=== PATIENT | female | born 1995 | race Caucasian/White ===

== ENCOUNTER → 2020-08-20 16:00 | Outpatient (CLI) | payer OTHER, SELFPAY ==
--- NOTE | ~2020-08-20 | XR_ITS ---
XR abdomen/kub 1V 08/20/2020 16:13 INDICATION: Hematuria TECHNIQUE: KUB COMPARISON: None FINDINGS: Bowel gas pattern is normal. Moderate colonic fecal loading. There is no evidence of free a ir, mass, organomegaly, ascites or obstruction. No abnormal calculi are seen. The bones appear inta ct. IMPRESSION: 1: No acute abdominal abnormality identified. Reviewed, dictated and finalized at location A. 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
== END ==
PROVIDERS: PCP Family Medicine; Visit Provider Family Medicine
DX: R31.9 Hematuria, unspecified (principal)
CPT/HCPCS: 74018

== ENCOUNTER → 2021-12-29 09:08 | Outpatient (CLI) | payer OTHER, SELFPAY ==
--- NOTE | ~2021-12-29 | XR_ITS ---
EXAMINATION: XR knee RT min 4V DATE: 12/29/2021 09:41 INDICATION: Unspecified injury of unspecified lower leg. TECHNIQUE: 4 views of right knee including standing views were obtained. COMPARISON: None. FINDINGS: Bone alignment is normal. No fracture. Joint spaces are normal. No knee joint effusion. IMPRESSION: 1. Normal right knee. Reviewed, dictated and finalized at location B. IMPRESSION: 1. Normal right knee.
== END ==
PROVIDERS: PCP Family Medicine; Visit Provider Physician Assistant
DX: S89.91XA Unspecified injury of right lower leg, initial encounter (principal)
CPT/HCPCS: 73564

== ENCOUNTER 2025-03-12 16:27 | Outpatient (RCR) | payer BC, SELFPAY ==
[2025-02-20 17:50] VITALS: BP 122/71; PULSE 102
--- NOTE | 2025-02-26 16:55 | PC.NURSE ---
Called Dr. Degroot with pt BPs. Orders received for labs. Call with results.
[2025-02-26 17:31] LABS: Add Urine Microscopic? NO; Appearance Urine Clear (Clear); Glucose Urine UA Negative (Negative); Leukocyte Esterase Ur Negative LEU/UL (Negative); Nitrate Urine Negative (Negative); Specific Grav Ur 1.020 (1.001-1.035)
[2025-02-26 17:45] VITALS: BP 144/83; PULSE 105
[2025-02-26 17:54] LABS: Hematocrit 36.3 % (37.0-47.0); Hemoglobin 11.3 g/dL (12.0-15.0); Immature Granulocyte Percent A 1.4 % (0-0.5); Lymphocytes Absolute Auto 2.49 K/mm3 (0.9-3.2); Mean Corpuscular HGB Conc 31.1 g/dl (32-36); Mean Corpuscular Hemoglobin 30.4 pg (26-34); Mean Corpuscular Volume 97.6 fl (80-100); Nucleated Red Blood Cells Absolute Auto 0.000 K/mm3 (0.0-0.012); Nucleated Red Blood Cells Perc 0.0 % (0.0-0.2); Platelet Count Result 251 k/mm3 (150-375); Red Blood Count 3.72 M/mm3 (4.2-5.4); White Blood Count 12.4 K/mm3 (4.5-10.0)
[2025-02-26 18:04] LABS: Alanine Aminotransferase 23 U/L (6-35); Albumin Level 3.4 g/dL (3.5-5.1); Alkaline Phosphatase 163 U/L (38-126); Anion Gap 9 mmol/L (4-12); Aspartate Amino Transferase 30 U/L (14-36); Bilirubin,Total 0.3 mg/dL (0.2-1.3); Blood Urea Nitrogen 11 mg/dL (7-17); Calcium 9.0 mg/dL (8.4-10.2); Carbon Dioxide 17 mmol/L (22-30); Chloride 107 mmol/L (98-107); Estimated Glomerular Filt Rate > 60; Glucose 80 mg/dL (65-110); Potassium 4.0 mmol/L (3.4-5.0); Sodium 133 mmol/L (137-145); Total Protein 7.0 g/dL (6.3-8.2); Uric Acid 4.1 mg/dL (2.5-7.5)
[2025-02-26 18:34] LABS: Total Protein Urine Random 9 mg/dL; Ur Ttl Prot Creatinine Ratio 0.11 mg/mg (0-0.20)
--- NOTE | 2025-02-26 18:46 | PC.NURSE ---
Called Dr. Degroot, update on labs and blood pressure. Orders received to discharge pt with instructions to keep next scheduled appointment and when to return to the unit.
--- NOTE | 2025-02-26 18:54 | PC.NURSE ---
Pt discharged with instructions to keep next scheduled appointment and when to return to the unit, pt verbalizes understanding.
[2025-03-04 18:16] VITALS: BP 121/70; PULSE 96
[2025-03-11 17:49] VITALS: BP 120/73; PULSE 98
--- NOTE | ~2025-03-12 | US_ITS ---
LIMITED OBSTETRIC ULTRASOUND/BIOPHYSICAL PROFILE Ordering provider: Angeles Degroot MD History: . Elevated BMI . Comparison: None. FINDINGS: MATERNAL CERVIX: Not visualized. PRESENTATION: Vertex Longitudinal lie. PLACENTAL LOCATION: Posterior. No previa. HEART RATE: 152 bpm (normal is between 110 to 160 bpm). AMNIOTIC FLUID INDEX: Largest vertical pocket is 2.58 cm. OTHER: Maternal ovaries not visualized. SCORE: breathing movements: 2 movements: 2 tone: 2 Amniotic fluid volume: 2 Total: 8 IMPRESSION: Normal biophysical profile. Single live fetus of Vertex presentation. Reviewed, dictated and finalized at location A.
--- NOTE | ~2025-03-12 | US_ITS ---
EXAMINATION: US OB BPP wo non-stress DATE: 03/04/2025 18:37 CDT INDICATION: Elevated BMI TECHNIQUE: Real-time transabdominal obstetric ultrasound. FINDINGS: 2 para 1 There is a single intrauterine gestation in vertex presentation. The placenta is posterior without placenta previa. cardiac activity and movement is noted with a heart rate of 146 beats per minute. The deepest vertical pocket measures 3.4 cm. Biophysical profile: breathin of 2 movement: 2 of 2 tone: 2 of 2 Amniotic fluid pocket: 2 of 2 Total score: 8 of 8 IMPRESSION: 1. Single intrauterine gestation in vertex presentation. 2: Total biophysical profile score of 8 out of 8. Reviewed, dictated and finalized at location A.
--- NOTE | ~2025-03-12 | US_ITS ---
LIMITED OBSTETRIC ULTRASOUND/BIOPHYSICAL PROFILE Ordering provider: Angeles Degroot MD History: . Elevated BMI and oligo . Comparison: None. FINDINGS: MATERNAL CERVIX: Not visualized. PRESENTATION: Vertex. Longitudinal lie. PLACENTAL LOCATION: Posterior. No previa. HEART RATE: 145 bpm (normal is between 110 to 160 bpm). AMNIOTIC FLUID INDEX: 7.3 cm. 5th percentile is 7.7 cm. 95th percentile is 24.9 cm. Largest vertical pocket is 2.2 cm. normal (RAKESH between 5-25 cm in from 20-35 weeks gestation is considered normal). OTHER: Maternal ovaries not visualized. SCORE: breathing movements: 2 movements: 2 tone: 2 Amniotic fluid volume: 2 Total: 8 IMPRESSION: Normal biophysical profile. Single live fetus of Vertex presentation. Placenta is posterior. RAKESH is 7.3 cm. Reviewed, dictated and finalized at location A.
--- NOTE | ~2025-03-12 | US_ITS ---
EXAMINATION: US OB BPP wo non-stress DATE: 03/11/2025 18:22 INDICATION: BPP for BMI . TECHNIQUE: Real-time ultrasound of the pelvis was performed. COMPARISON: 03/04/2025 FINDINGS: There is a single living fetus in vertex presentation, longitudinal lie. The placenta is posterior, well distant from the cervix. heart rate is 150 bpm. Deepest vertical pocket measures 4.0 cm, w hich is normal. Biophysical profile performed by the technologist: breathing (30 sec sustained breathing in 30 minutes): 2 out of 2. movement (3 gross body movements in 30 minutes: 2 out of 2. tone (one episode of huxoerg-udttomlee-bqojpun limb movement): 2 out of 2. Amniotic fluid pocket (2 cm): 2 out of 2. Total score: 8 out of 8. IMPRESSION: Single living fetus in vertex presentation. Biophysical profile 8 out of 8. Reviewed, dictated and finalized at location K.
== END 2025-03-28 09:53 | disposition other institution (70) ==
LOC: ANHOBOP 16:27
PROVIDERS: PCP Family Medicine; Visit Provider Obstetrics & Gynecology
DX: O13.9 Gestational [pregnancy-induced] hypertension without significant proteinuria, unspecified trimester (principal)
CPT/HCPCS: 36415; 59025; 76819; 80053; 81003; 82570; 84156; 84550; 85025

== ENCOUNTER 2025-03-13 05:43 | Inpatient (IN) | payer BC, SELFPAY ==
[2025-03-13] VITALS (88 sets, daily range): BP systolic 89–141; BP diastolic 27–96; PULSE 70–120; RESP 16–18; TEMP 36.6–37; O2SAT 96–100; BMI 48.8
--- NOTE | 2025-03-13 05:43 | LDADM ---
This patient, Oanh Palomo, was admitted to Labor/Delivery/Recovery 107 on 03/13/25 at 05:43. Plans for labor, pain management and were discussed with patient. Patient/family oriented to hospital policies and general routines including ID bracelet, bed and alarms, visiting hours, pain management, procedures, bathroom and other care routines, personal items, smoking policy, room service/diet and guest tray routines, security routines, and visiting hours. Patient/Family are encouraged to report perceived risks to care and to ask questions if they do not understand what they are told or what they should do. See OBIX for further documentation.
--- OUTSIDE RECORDS SUMMARY | 2025-03-13 05:48 | XMS_ITS | Clinical Summary ---
Author Organization [facility] Address [facility] [place] [address] Care Team Providers Care Corporate Tutor Name Role Phone Yissel Stapleton Primary Care Provider [phone] Allergies No known active allergies Medications dicyclomine 10 MG capsule Take 1 capsule (10 mg total) by mouth 4 (four) times daily as needed. 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 Pulse 95 09/11/2020 2:26 PM ORNAMENTAL BRONZE WORKER Temperature 36.6 C (97.9 F) 09/11/2020 2:26 PM ORNAMENTAL BRONZE WORKER Respiratory Rate 20 09/11/2020 2:26 PM ORNAMENTAL BRONZE WORKER Oxygen Saturation 98% 09/11/2020 2:26 PM ORNAMENTAL BRONZE WORKER Inhaled Oxygen Concentration - - Weight 81.6 kg (180 lb) 09/11/2020 2:26 PM ORNAMENTAL BRONZE WORKER Height 160 cm (5' 3) 09/11/2020 2:26 PM ORNAMENTAL BRONZE WORKER Body Mass Index 31.89 09/11/2020 2:26 PM ORNAMENTAL BRONZE WORKER Plan of Treatment Health Maintenance Due Date Last Done Comments Cervical Cancer Screening Pa p Smear (Age 30 to 64) Every 3 Years 1993 Annual Physical 1996 Hepatitis C 2011 DTaP, Tdap and Td Vaccines ( 1 - Tdap) 2012 Hepatitis B Vaccines (1 of 3 - 19+ 3-dose series) 2012 Cervical Cancer Screening Jordy underwood with HPV Testing (Age 30 to 64) Every 5 Years 2023 Cervical Cancer Screening with HPV 2023 COVID-19 Vaccine (1 - 2023-2 5 season) 2024 HPV Vaccines Aged Out No longer eligi ble based on patient's age to complete this topic Meningococcal B Vaccine Aged Out No l onger eligible based on patient's age to complete this topic Meningococcal Vaccine Aged Out No urmila yessica eligible based on patient's age to complete this topic Pneumococcal Vaccine: Pediat rics (0 to 5 Years) and At-Risk Patients (6 to 49 Years) Aged Out No longer eligible b ased on patient's age to complete this topic RSV Immunizations Under 20 Months Aged Out No longer eligible based on patient's age to complete this topic Insurance AET[employer] Care Teams Corporate Tutor Relationship Specialty Start Date End Date Yissel Stapleton PA [address] [place] [address] PCP - General 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
[2025-03-13 06:25] LABS: Hematocrit 35.0 % (37.0-47.0); Hemoglobin 11.5 g/dL (12.0-15.0); Immature Granulocyte Percent A 0.5 % (0-0.5); Lymphocytes Absolute Auto 2.06 K/mm3 (0.9-3.2); Mean Corpuscular HGB Conc 32.9 g/dl (32-36); Mean Corpuscular Hemoglobin 30.8 pg (26-34); Mean Corpuscular Volume 93.8 fl (80-100); Nucleated Red Blood Cells Absolute Auto 0.000 K/mm3 (0.0-0.012); Nucleated Red Blood Cells Perc 0.0 % (0.0-0.2); Platelet Count Result 239 k/mm3 (150-375); Red Blood Count 3.73 M/mm3 (4.2-5.4); White Blood Count 10.0 K/mm3 (4.5-10.0)
[2025-03-13] MEDS: LACTATED RINGERS 1,000 ML 125 ML IV CONT ×2 (06:51→10:40)
[2025-03-13] MEDS: OXYTOCIN 30 UNITS/NS 500 ML 30 UNITS/500 ML BAG IV CONT (06:52)
--- NOTE | 2025-03-13 07:10 | PM.IMHP ---
H&P: HPI History of Present Illness Date/Time: 03/13/25 07:10 Chief Complaint: induction Narrative: Oanh is a 29yo @ 39.0wks who presents for elective IOL. She reports good movement. She has irregular contractions. NO VB or LOF. Her is complicated by: - obesity- MFM for scans, low dose ASA - Anxiety- no meds - h/o self-harm - Elevated BP, moderate range 02/26/25 Review of Systems Constitutional: Constitutional: Denies chills, Denies fever(s) and Denies headache(s) Eyes: Eyes: Denies change in vision ENT: Denies headache(s) Cardiovascular: Cardiovascular: Denies chest pain and Denies dyspnea Respiratory: Respiratory: Denies dyspnea Genitourinary: Genitourinary: Denies abnormal vaginal bleeding and Denies vaginal discharge Neurologic: Denies headache(s) Psychiatric: Psychiatric: Denies anxiety and Denies depression PMFSH Past Medical History Medical History Suppression of menses Irritable bowel syndrome Anxiety Self-harm Depression Deliberate self-cutting Suicidal ideation Anxiety Depression Family History Family History Father Hypertension Heart disease Mother Depression Heart disease Anxiety associated with depression Social History Social History Smoking packs per day: 0.5 Smoking cigarettes per day: 10.0 Years smoked: 8 Smoking pack-years: 4.00 Smoking status: Former smoker Tobacco type: e-cigarettes/vaping Additional smoking assessment comments: currently vapes/ no cigarettes Alcohol intake: former Alcohol use details: seldom; socially Substance use: never Substance use type: does not use Do You Feel Safe in your Home?: Yes Lack of Transportation: No Lack of Food: Never True Current Housing: I Have Housing Concerned About Future Housing: No Difficulty Paying Gas/Electric Bills: No Difficulty Paying for Meds: No Currently Unemployed: No Education: Bachelor's Degree Difficulty w/ Childcare or Family Care: No Living arrangements: with family Occupation/Education: occupation Gender identity (if verbalized by the patient): Female Spiritual care concerns: No Agree to blood products: No Meds Home Medications and Allergies Home Medications ?Medication ?Instructions ?Recorded ?Confirmed ?Type docosahexaenoic acid 200 mg 200 mg PO DAILY 10/31/24 03/13/25 History capsule ( DHA) aspirin 81 mg chewable tablet 81 mg PO DAILY 11/21/24 03/13/25 History doxylamine succinate 25 mg tablet 25 mg PO QHS PRN sleep 11/21/24 03/13/25 History (Unisom (doxylamine)) esomeprazole magnesium 20 mg 20 mg PO DAILY 11/21/24 03/13/25 History capsule,delayed release pyridoxine (vitamin B6) 10 mg 10 mg PO DAILY 11/21/24 03/13/25 History tablet docusate sodium 100 mg capsule 100 mg PO DAILY 12/19/24 03/13/25 History (Colace) magnesium 200 mg tablet 200 mg PO DAILY 12/19/24 03/13/25 History ferrous sulfate 325 mg (65 mg 325 mg PO DAILY 01/09/25 03/13/25 History iron) tablet (Feosol) Allergies Allergy/AdvReac Type Severity Reaction Status Date / Time Penicillins Allergy Severe anaphl Verified 03/12/25 17:21 Vital Signs Vital Signs - 24 hr 03/13/25 06:39 03/13/25 06:39 03/13/25 06:54 Temperature 97.9 F 97.9 F Pulse Rate 106 H Blood Pressure 125/85 03/13/25 07:01 Temperature Pulse Rate 98 Blood Pressure 119/75 Exam Const: General: cooperative, comfortable, no acute distress and obese Nutritional Appearance: obese Orientation/consciousness: patient oriented x3 Resp: Effort & Inspection: normal respiratory effort Cardio: Rate: regular rate GI: GI Palp: No abdominal tenderness : Other: FHT's: 140's/ mod shonna/ + accels/ no decels - cat 1 TOCO: ctxs q2-4min Cervix: 4/80/-2 Membranes: AROM, clear 0730 Presentation: cephalic Skin: General skin exam: normal color Neuro: General: patient oriented x3 Extrem: General: normal to inspection Psych: Appearance: grossly normal Affect: normal affect Attitude: cooperative H&P: Results Labs Labs: Short CBC 03/13/25 Range/Units 06:07 WBC 10.0 (4.5-10.0) K/mm3 Hgb 11.5 L (12.0-15.0) g/dL Hct 35.0 L (37.0-47.0) % Plt Count 239 (150-375) k/mm3 Assessment and Plan Assessment and plan (1) Encounter for elective induction of labor: Code(s): Z34.90 - Encounter for supervision of normal , unspecified, unspecified trimester Status: Acute Plan - Admitted for induction of labor; risks and benefits discussed; cervix favorable - AROM, clear @ 0730 - Low dose pitocin per protocol - Continuous monitoring - GBS neg - Anesthesia consult PRN pain
[2025-03-13 07:15] LABS: Syphilis IgG/IgM Antibody Non-Reactive (Nonreactive)
--- NOTE | 2025-03-13 11:46 | P.PNAN_ITS ---
Anes - Eval Pre Procedure Procedure: labor pain management Date/Time: 03/13/25 11:46 Surgeon: Tyrone Degroot Preop Diagnosis: pain during labor Pre Op Diagnosis: IOL Patient Data Age: 29 Gender: F Height: 1.6 m Weight: 125 kg Last Vital Signs Temp 97.8 F 03/13/25 10:17 Pulse 80 03/13/25 11:31 BP 109/74 03/13/25 11:31 Pulse Ox 100 03/13/25 11:43 Allergies Allergy/AdvReac Type Severity Reaction Status Date / Time Penicillins Allergy Severe anaphl Verified 03/12/25 17:21 Home Medications ?Medication ?Instructions ?Recorded ?Confirmed ?Type docosahexaenoic acid 200 mg 200 mg PO DAILY 10/31/24 03/13/25 History capsule ( DHA) aspirin 81 mg chewable tablet 81 mg PO DAILY 11/21/24 03/13/25 History doxylamine succinate 25 mg tablet 25 mg PO QHS PRN sleep 11/21/24 03/13/25 History (Unisom (doxylamine)) esomeprazole magnesium 20 mg 20 mg PO DAILY 11/21/24 03/13/25 History capsule,delayed release pyridoxine (vitamin B6) 10 mg 10 mg PO DAILY 11/21/24 03/13/25 History tablet docusate sodium 100 mg capsule 100 mg PO DAILY 12/19/24 03/13/25 History (Colace) magnesium 200 mg tablet 200 mg PO DAILY 12/19/24 03/13/25 History ferrous sulfate 325 mg (65 mg 325 mg PO DAILY 01/09/25 03/13/25 History iron) tablet (Feosol) Laboratory Tests 03/13/25 06:07 WBC 10.0 K/mm3 (4.5-10.0) RBC 3.73 L M/mm3 (4.2-5.4) Hgb 11.5 L g/dL (12.0-15.0) Hct 35.0 L % (37.0-47.0) MCV 93.8 fl (80-100) MCH 30.8 pg (26-34) MCHC 32.9 g/dl (32-36) RDW 15.3 H % (11.5-14.5) Plt Count 239 k/mm3 (150-375) MPV 10.2 fl (7.4-10.4) Immature Gran % (Auto) 0.5 % (0-0.5) Neut % (Auto) 71.0 % (45.5-73.1) Lymph % (Auto) 20.5 % (18.3-44.2) [place] % (Auto) 6.3 % (2.6-8.5) Eos % (Auto) 1.3 % (0-4.4) Baso % (Auto) 0.4 % (0.2-1.2) Lymph # (Auto) 2.06 K/mm3 (0.9-3.2) [place] # (Auto) 0.6 K/mm3 (0.1-0.6) Eos # (Auto) 0.1 K/mm3 (0-0.3) Baso # (Auto) 0.0 K/mm3 (0.0-0.1) Abs Immat Gran (auto) 0.05 H K/mm3 (0.00-0.031) Absolute Neuts (auto) 7.1 H K/mm3 (1.3-6.7) Absolute Nucleated RBC 0.000 K/mm3 (0.0-0.012) Nucleated RBC % 0.0 % (0.0-0.2) Syphilis IgG/IgM Ab Non-reactive (Nonreactive) Blood Type A Positive Antibody Screen Negative Patient hx anesthesia problems: none Family hx anesthesia problems: none Results Review: All pre-operative results and documents have been reviewed as part of the pre- operative evaluation. [facility] Past Medical History Medical History Suppression of menses Irritable bowel syndrome Anxiety Self-harm Depression Deliberate self-cutting Suicidal ideation Anxiety Depression Family History Family History Father Hypertension Heart disease Mother Depression Heart disease Anxiety associated with depression Social History Social History Smoking packs per day: 0.5 Smoking cigarettes per day: 10.0 Years smoked: 8 Smoking pack-years: 4.00 Smoking status: Former smoker Tobacco type: e-cigarettes/vaping Additional smoking assessment comments: currently vapes/ no cigarettes Alcohol intake: former Alcohol use details: seldom; socially Substance use: never Substance use type: does not use Do You Feel Safe in your Home?: Yes Lack of Transportation: No Lack of Food: Never True Current Housing: I Have Housing Concerned About Future Housing: No Difficulty Paying Gas/Electric Bills: No Difficulty Paying for Meds: No Currently Unemployed: No Education: Bachelor's Degree Difficulty w/ Childcare or Family Care: No Living arrangements: with family Occupation/Education: occupation Gender identity (if verbalized by the patient): Female Spiritual care concerns: No Agree to blood products: No Exam Day of Procedure 03/13/25 11:46
--- NOTE | 2025-03-13 12:56 | P.PCNOB_ITS ---
OB - Vaginal Delivery Note Procedure Delivery date: 03/13/25 Induction method: Per Pitocin Protocol Delivery augmentation: Rupture of Membranes Delivery monitor: External FHT and External Uterine Route of delivery: Episiotomy description: None Laceration Description: None Specimen: No Quantitative Blood Loss (ml): 150 Anesthesia type: Epidural Disposition: Floor Complications: No immediate complications [place] Baby Date of : 03/13/25 Time of : 12:43 Gestational Age by Date: 39 gender: Female presentation: vertex position: Right Occiput Anterior Placenta delivery description: Expressed Cord Vessel Description: 3 Vessels and Delayed Cord Clamping score one minute: 9 score five minutes: 9 Narrative: Oanh rapidly progressed to complete dilation with strong desire to push. She pushed for approximately 10 minutes with good maternal effort and delivered the head over intact perineum. No nuchal cord was palpated. She easily delivered the 's shoulders and body without complication. The was immediately placed skin to skin and had spontaneous cry. Delayed cord clamping was performed. The umbilical cord was then doubly clamped and was cut by dad. A segment of cord was collected for cord gases. The remaining cord blood was collected for typing. With Pitocin running and gentle downward traction on the cord, the placenta delivered without complications. Bimanual massage was performed and good uterine tone with minimal bleeding was noted. She was examined and no lacerations were identified. Her uterus remained firm with minimal bleeding. Sponge, lap, instrument, and needle counts were correct at the end of the procedure. Mom and baby were left bonding in the birthing suite in stable condition.
[2025-03-13] MEDS: OXYTOCIN 30 UNITS/NS 500 ML 30 UNITS/500 ML BAG 125 UNITS IV CONT (13:07)
--- NOTE | 2025-03-13 15:14 | OBPPTRN ---
Patient transferred to post room #290 via wheelchair. Support person present. Oriented to unit, room, information board, rooming in, admission packet and security measures. Patient verbalizes understanding.
[2025-03-13] MEDS: DOCUSATE SODIUM 100 MG CAPSULE PO (19:18)
[2025-03-13] MEDS: IBUPROFEN 600 MG TABLET PO (19:18)
[2025-03-14 04:17] LABS: Hematocrit 32.5 % (37.0-47.0); Hemoglobin 10.4 g/dL (12.0-15.0); Mean Corpuscular HGB Conc 32.0 g/dl (32-36); Mean Corpuscular Hemoglobin 31.0 pg (26-34); Mean Corpuscular Volume 96.7 fl (80-100); Platelet Count Result 221 k/mm3 (150-375); Red Blood Count 3.36 M/mm3 (4.2-5.4); White Blood Count 9.9 K/mm3 (4.5-10.0)
--- NOTE | 2025-03-14 07:14 | P.PNOB_ITS ---
OB - PN: Subj Subjective Date/time seen: 03/14/25 07:14 Narrative: PPD#1 Mayda reports doing well today. 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 Her pain is controlled. She is tolerating regular diet, voiding, passing gas, and ambulating without issues. She is breast feeding. OB - PN: Obj Data Labs 03/14/25 03:11 Labs: Laboratory Results - last 24 hr 03/13/25 03/14/25 06:07 03:11 WBC 9.9 RBC 3.36 L Hgb 10.4 L Hct 32.5 L MCV 96.7 MCH 31.0 MCHC 32.0 RDW 15.3 H Plt Count 221 MPV 10.6 H Syphilis IgG/IgM Ab Non-reactive Blood Type A Positive Antibody Screen Negative OB - PN A/P Assessment and Plan (1) Normal vaginal delivery of second : Code(s): O80 - Encounter for full-term uncomplicated delivery Status: Acute Plan day: 1 Plan: routine care Comments: - PO pain meds - Regular diet - Ambulation and hydration encouraged - Continue putting baby to breast q2-3hr Time Spent With Patient Time: Total time spent is greater than 50% in coordination of care (as documented) at patient's floor/unit and/or counseling patient: Review of Systems 2 Constitutional: Constitutional: Denies chills, Denies fever(s) and Denies headache(s) Eyes: Eyes: Denies change in vision ENT: Denies dizziness and Denies headache(s) Cardiovascular: Cardiovascular: Denies chest pain, Denies palpitations and Denies dyspnea Respiratory: Respiratory: Denies cough and Denies dyspnea Gastrointestinal: Gastrointestinal: Denies nausea and Denies vomiting Neurologic: Denies dizziness and Denies headache(s) Endocrine: Endocrine: Denies palpitations Exam 2 Const: General: cooperative, comfortable, no acute distress and obese N utritional Appearance: obese Orientation/consciousness: patient oriented x3 Resp: Effort & Inspection: normal respiratory effort Auscultation: clear to auscultation bilaterally Cardio: Rate: regular rate GI: Inspection: non-distended GI Palp: No abdominal tenderness and Yes Soft to palpation Auscultation: normal bowel sounds : Other: fundus firm Skin: General skin exam: normal color Neuro: General: patient oriented x3 Extrem: General: normal to inspection Psych: Appearance: grossly normal Affect: normal affect Attitude: c ooperative
--- NOTE | 2025-03-14 07:17 | P.DS_ITS ---
DS: Admitting Diagnosis Discharge Date 03/15/25 Admitting Diagnosis Elective IOL DS: Discharge Diagnosis Discharge Diagnosis (1) Normal vaginal delivery of second : Code(s): O80 - Encounter for full-term uncomplicated delivery Status: Acute OB - DS: Summary OB Procedures : NST and Ultrasound OB Procedures Intrapartum: Spontaneous Vag Delivery OB Procedures: : None Peripartum Data Infant Delivery Method: Natural Vaginal Laceration Description: None Episiotomy description: None complications: none [place] 1: Gender: Female Disposition of : home Status at Discharge Functional status at discharge: independent ambulation Overall status at discharge: patient is back to baseline Time Spent with Patient Time attestation: Total time spent providing and/or coordinating discharge services: Exam Const: General: cooperative, comfortable, no acute distress and obese Nutritional Appearance: obese Orientation/consciousness: patient oriented x3 Resp: Effort & Inspection: normal respiratory effort Auscultation: clear to auscultation bilaterally Cardio: Rate: regular rate GI: Inspection: non-distended GI Palp: No abdominal tenderness and Yes Soft to palpation Auscultation: normal bowel sounds : Other: fundus firm Skin: General skin exam: normal color Neuro: General: patient oriented x3 Extrem: General: normal to inspection Psych: Appearance: grossly normal Affect: normal affect Attitude: cooperative DS: Data Data Completed and Pending Labs on day of discharge: Labs from last 24 hours 03/14/25 03/13/25 03:11 06:07 WBC 9.9 RBC 3.36 L Hgb 10.4 L Hct 32.5 L MCV 96.7 MCH 31.0 MCHC 32.0 RDW 15.3 H Plt Count 221 MPV 10.6 H Blood Type A Positive Antibody Screen Negative Discharge Plan Discharge Attending physician on discharge: Angeles Degroot Discharging Clinician: Angeles Degroot Anticipated Discharge Date/Time: 03/15/25 10:00 Patient Disposition: Home Activity: may shower and pelvic rest Diet: regular Patient Instructions: Vaginal Delivery (DC) Patient Language: [place] Stand Alone Forms: General Discharge Information Follow-up/Referrals: Angeles Degroot MD [Physician] - 4 Weeks Discharge Medications: New acetaminophen 500 mg tablet 1,000 mg PO TID Qty: 60 0RF ibuprofen 800 mg tablet 800 mg PO TID Qty: 30 0RF Continued DHA 200 mg capsule 200 mg PO DAILY esomeprazole magnesium 20 mg capsule,delayed release(DR/EC) 20 mg PO DAILY Unisom (doxylamine) 25 mg tablet 25 mg PO QHS PRN (Reason: sleep) magnesium 200 mg tablet 200 mg PO DAILY docusate sodium [Colace] 100 mg capsule 100 mg PO DAILY ferrous sulfate [Feosol] 325 mg (65 mg iron) tablet 325 mg PO DAILY Discontinued pyridoxine (vitamin B6) 10 mg tablet 10 mg PO DAILY aspirin 81 mg tablet,chewable 81 mg PO DAILY Date of admission: 03/13/25 05:43 Primary Care Provider: Mattie Mueller Admitting Provider: Angeles Degroot Attending physician on admission: Angeles Degroot Condition: Stable
--- NOTE | 2025-03-14 07:56 | WPDANLDPN2 ---
Anes-Prog Note L&D Date/Time: 03/14/25 07:56 Comfortable throughout: labor and delivery Neuraxial method: epidural Epidural/Spinal procedure site: clean & non-tender Neuro status: Neuro function grossly intact. Cardiovascular status: normal Respiratory status: normal Airway patency: baseline Mental status: baseline Post-Op hydration status: normal Vital Signs: Last Vital Signs Temp 36.7 C 03/13/25 23:56 Pulse 89 03/13/25 23:56 Resp 18 03/13/25 23:56 BP 119/73 03/13/25 23:56 Pulse Ox 97 03/13/25 23:56 O2 Del Method Room Air 03/13/25 15:30 Pain score (VAS): 09/07 I/O: Intake & Output 03/13/25 03/13/25 03/14/25 15:59 23:59 07:59 Intake Total 477.1 500 Output Total 310 Balance 167.1 500 Post-procedural complaints: none Patient feedback: Patient satisfied with anesthetic care.
--- NOTE | 2025-03-14 08:00 | PC.NURSE ---
Consulted with patient to assess needs related to . Discussed with mother her successes, concerns and any questions she has. Per mother baby had very good feedings at first and then was very sleepy and would not latch through the night. A breast pump was then provided due to mother request and had not fed for a long period of time, had glucose checked and it was low so had to supplement with formula. Per mother she does have her own Spectra breast pump at home but she did not bring it with her. Instructions given on cleaning, care, usage, that there should be no pain, pumping schedule for milk production, collection, and storage of human milk. Patient was assessed for correct placement, flange size (nipples were 20mm, using size 24 flange), to pump for comfort and nipple stretching/stimulation for adequate milk production every 3 hours (8 times in 24 hours) 1-2 times at night. Parents are encouraged to record the pumping schedule on the feeding sheet.?Mother voiced understanding of the education shared along with mom/baby guide and the pump measurement, flange fit handout for additional resource information. Reported to the Primary RN.
[2025-03-14 08:15] VITALS: BP 116/77; PULSE 80; RESP 16; TEMP 36.8; O2SAT 98
[2025-03-14] MEDS: MULTIVIT/MIN/PREN/FOL AC/IRON TABLET 1 TAB PO (10:14)
[2025-03-14] MEDS: IBUPROFEN 600 MG TABLET PO (13:20)
[2025-03-14] MEDS: ACETAMINOPHEN 325 MG TABLET 650 MG PO (13:22)
[2025-03-14 21:30] VITALS: BP 119/77; PULSE 95; RESP 18; TEMP 36.9; O2SAT 96
[2025-03-15] MEDS: IBUPROFEN 600 MG TABLET PO (01:29)
[2025-03-15] MEDS: ACETAMINOPHEN 325 MG TABLET 650 MG PO (01:30)
[2025-03-15 07:40] VITALS: BP 118/85; PULSE 76; RESP 18; TEMP 37.2; O2SAT 98
[2025-03-15] MEDS: DOCUSATE SODIUM 100 MG CAPSULE PO (08:40)
[2025-03-15] MEDS: MULTIVIT/MIN/PREN/FOL AC/IRON TABLET 1 TAB PO (08:40)
--- NOTE | 2025-03-15 11:00 | PC.NURSE ---
Met with patient regarding and pumping. Patient has decided to pump and feed rather than direct . Infant is still in the level 2 nursery at this time. Reviewed normal expectations of milk supply and the importance of consistency with pumping every 3 hours. She has a Spectra pump at home. Parents decline any further questions or concerns at this time. RN updated.
[2025-03-18 11:21] VITALS: BP 133/83; PULSE 86; RESP 18; TEMP 36.6; O2SAT 100
== END 2025-03-15 11:35 | disposition home or self-care (01) | DRG 807 ==
LOC: ANHLDR 05:50 → ANHOB2 03-14 07:16 → ANHLDR 03-18 09:17 → ANHOB2 03-18 09:17
PROVIDERS: Admitting Provider Obstetrics & Gynecology; PCP Family Medicine; Visit Provider Student in an Organized Health Care Education/Training Program
DX: O99.214 Obesity complicating childbirth (principal); Z37.0 Single live birth; Z3A.39 39 weeks gestation of pregnancy
CPT/HCPCS: 36415; 85025; 85027; 86593; 86850; 86900; 86901; A9270; J2590; J2795; J7120

== ENCOUNTER 2025-03-16 13:41 | Outpatient (CLI) | payer BC, SELFPAY ==
--- OUTSIDE RECORDS SUMMARY | 2025-03-16 13:45 | XMS_ITS | Clinical Summary ---
Author Organization [facility] Address [facility] [place] [address] Care Team Providers Care [employer] Name Role Phone Yissel Stapleton Primary Care Provider [phone] Allergies No known active allergies Medications dicyclomine [...] Comments Blood Pressure 147/89 09/11/2020 2:26 PM [employer] Pulse 95 09/11/2020 2:26 PM [employer] Temperature 36.6 C (97.9 F) 09/11/2020 2:26 PM [employer] Respiratory Rate 20 09/11/2020 2:26 PM [employer] Oxygen Saturation 98% 09/11/2020 2:26 PM [employer] Inhaled Oxygen Concentration - - Weight 81.6 kg (180 lb) 09/11/2020 2:26 PM [employer] Height 160 cm (5' 3) 09/11/2020 2:26 PM [employer] Body Mass Index 31.89 09/11/2020 2:26 PM [employer] Plan of Treatment Health Maintenance Due Date [...] complete this topic Insurance [employer] Care Teams [employer] Relationship Specialty Start Date End Date Yissel Stapleton PA [address] [place] [address] PCP - General PHYSICIAN COMM[employer]ITY [employer]IC THERAPIST 09/11/20
[2025-03-16 14:41] LABS: Hematocrit 34.8 % (37.0-47.0); Hemoglobin 11.1 g/dL (12.0-15.0); Mean Corpuscular HGB Conc 31.9 g/dl (32-36); Mean Corpuscular Hemoglobin 30.7 pg (26-34); Mean Corpuscular Volume 96.4 fl (80-100); Platelet Count Result 252 k/mm3 (150-375); Red Blood Count 3.61 M/mm3 (4.2-5.4); White Blood Count 9.9 K/mm3 (4.5-10.0)
== END 2025-03-16 13:42 | disposition home or self-care (01) ==
LOC: ANHOBOP 13:44
PROVIDERS: Student in an Organized Health Care Education/Training Program; PCP Family Medicine; Visit Provider Obstetrics & Gynecology
DX: O13.9 Gestational [pregnancy-induced] hypertension without significant proteinuria, unspecified trimester (principal); H53.9 Unspecified visual disturbance; R42 Dizziness and giddiness; Z3A.00 Weeks of gestation of pregnancy not specified
CPT/HCPCS: 36415; 85027